=== PATIENT | male | born 1960 | race Caucasian/White ===

== ENCOUNTER 2018-05-29 17:13 | Emergency (ER) | payer SELFPAY ==
[~2018-05-29] VITALS: Ht 188 cm; Wt 73.9 kg
[2018-05-29] MEDS ORDERED: LORAZEPAM INJ 2 MG/ML VIAL ONE ×2 (17:47→19:13)
--- NOTE | 2018-05-29 17:58 | NUR ---
[id number] FRM HOME FOR WITNESSED SEIZURE. L RIB AREA BRUISING NOTED PER REPORT, + ORAL TRAUMA. SOME DRIED BLOOD ON LEFT SIDE OF FACE. PT AOX4, AMB, VSS, RR EVEN AND UNLABORED ON RA. SKIN INTACT. STATES HAVING SOME DIZZINESS ON/OFF FOR WEEKS. READY FOR EVAL.
[2018-05-29] MEDS: IV NS 0.9% 1,000 ML BAG IV ONE (18:01)
[2018-05-29] MEDS: LORAZEPAM INJ 2 MG/ML VIAL IV ONE ×2 (18:01→19:20)
[2018-05-29 18:07] LABS: BASOPHILS # (AUTO) 0.1 /CMM (0.0-0.2); BASOPHILS % (AUTO) 2.4 % (0.0-2.0); EOSINOPHILS % (AUTO) 3.4 % (0.0-6.0); HEMATOCRIT 35 % (39-51); HEMOGLOBIN 11.9 g/dL (13.5-17.5); LYMPHOCYTES # (AUTO) 0.9 /CMM (0.8-4.8); LYMPHOCYTES % (AUTO) 24.4 % (20.0-44.0); MEAN CORPUSCULAR HGB CONC 35 g/dl (31.0-36.0); MEAN CORPUSCULAR VOLUME 108 fL (80-96); MONOCYTES # (AUTO) 0.6 /CMM (0.1-1.30); NEUTROPHILS % (AUTO) 54.8 % (43.0-81.0); PLATELET COUNT (AUTO) 93 /CMM (150-450); RED BLOOD CELL COUNT(AUTO) 3.19 MIL/uL (4.5-6.0); WHITE BLOOD COUNT (AUTO) 3.7 K/uL (4.3-11.0)
[2018-05-29 18:31] LABS: ALBUMIN 3.7 g/dL (3.4-5.0); BILIRUBIN,DIRECT 0.5 mg/dL (0.0-0.2); BILIRUBIN,TOTAL 1.3 mg/dL (0.2-1.0); CALCIUM, SERUM 9.3 mg/dL (8.5-10.1); CREATININE 0.9 mg/dL (0.6-1.3); POTASSIUM 3.1 mmol/L (3.5-5.1); TOTAL PROTEIN, SERUM 6.9 g/dL (6.4-8.2)
[2018-05-29 18:40] LABS: EOSINOPHILS % (MANUAL) 4 % (0-4); LYMPHOCYTES % (MANUAL) 31 % (16-48); MONOCYTES % (MANUAL) 14 % (0-11.0); NEUTROPHILS % (MANUAL) 51 (42-76)
[2018-05-29] MEDS ORDERED: POTASSIUM CHLORIDE 20 MEQ TAB.PRT.SR PO ONE (19:12)
[2018-05-29] MEDS: POTASSIUM CHLORIDE 20 MEQ TAB.PRT.SR PO ONE (19:20)
--- NOTE | 2018-05-29 19:46 | NUR ---
Patient is resting comfortably in bed with eyes closed. Easily aroused. VSS
--- NOTE | 2018-05-29 20:20 | NUR ---
IV removed. Catheter intact and site benign. Pressure and 4x4 applied to site. No bleeding noted. Patient discharged to home in stable condition. Written and verbal after care instructions given. Patient verbalizes understanding of instruction. PROVIDED TAXI VOUCHER TO MANAGER SERVICE DESK
[2018-05-29 20:25] VITALS: BP 135/82
== END 2018-05-29 20:10 | disposition home or self-care (01) ==
LOC: ER 17:19
DX: F10.239 Alcohol dependence with withdrawal, unspecified (principal); R56.9 Unspecified convulsions; I11.9 Hypertensive heart disease without heart failure; Y90.0 Blood alcohol level of less than 20 mg/100 ml
CPT/HCPCS: 36415; 80048; 80076; 80307; 82962; 85025; 85730; 96374; 96376; 99283; A4606; J2060 ×2; J7030; G0480

== ENCOUNTER 2018-12-27 22:07 | Emergency (ER) | payer SELFPAY ==
[~2018-12-27] VITALS: Ht 188 cm; Wt 81.6 kg
--- NOTE | 2018-12-27 22:10 | NUR ---
TO BED 2 BIB EMS FROM [facility] ([facility]) C/ WITNESSED SEIZURE. RECEIVED PT AAOX4 NO ACUTE DISTRESS NOTED, RESP EVEN AND UNLABORED. PUPILS PERRLA, PT ABLE TO MOVE ALL EXTREMITIES WELL WITH BILATERAL EQUAL MEDICAL REVIEW COORDINATOR. NO OBVIOUS HEAD TRAUMA NOTED, NO URINARY OR BOWEL INCONTINENCE NOTED. PLACE PT ON CARDIAC MONITORING, CONTINUOS POX. PENDING ER MD MALAVE.
[2018-12-27] MEDS ORDERED: LORAZEPAM INJ 2 MG/ML VIAL ONE (23:00)
[2018-12-27 23:28] LABS: BASOPHILS % (AUTO) 1.3 % (0.0-2.0); EOSINOPHILS % (AUTO) 1.2 % (0.0-6.0); HEMATOCRIT 33 % (39-51); HEMOGLOBIN 11.7 g/dL (13.5-17.5); LYMPHOCYTES # (AUTO) 0.6 /CMM (0.8-4.8); LYMPHOCYTES % (AUTO) 16.8 % (20.0-44.0); MEAN CORPUSCULAR HGB CONC 35 g/dl (31.0-36.0); MEAN CORPUSCULAR VOLUME 110 fL (80-96); MONOCYTES # (AUTO) 0.7 /CMM (0.1-1.30); MONOCYTES % (AUTO) 18.3 % (2.0-12.0); NEUTROPHILS # (AUTO) 2.4 /CMM (1.8-8.9); NEUTROPHILS % (AUTO) 62.4 % (43.0-81.0); PLATELET COUNT (AUTO) 175 /CMM (150-450); RED BLOOD CELL COUNT(AUTO) 3.02 MIL/uL (4.5-6.0); WHITE BLOOD COUNT (AUTO) 3.8 K/uL (4.3-11.0)
[2018-12-27] MEDS ORDERED: IV NS 0.9% 500 ML BAG IV ONE (23:30)
[2018-12-27] MEDS ORDERED: LORAZEPAM INJ 2 MG/ML VIAL IVP ONE (23:30)
[2018-12-27 23:31] LABS: CALCIUM, SERUM 9.8 mg/dL (8.5-10.1); POTASSIUM 3.4 mmol/L (3.5-5.1)
[2018-12-27 23:44] LABS: B-TYPE NATRIURETIC PEPTIDE 426 PG/ML (0-125)
[2018-12-27 23:56] LABS: LYMPHOCYTES % (MANUAL) 18 % (16-48); MONOCYTES % (MANUAL) 11 % (0-11.0); NEUTROPHILS % (MANUAL) 69 (42-76); REACTIVE LYMPHOCYTES 2 % (0-0)
[2018-12-27] MEDS ORDERED: CARVEDILOL 6.25 MG TABLET ONE (23:59)
[2018-12-28] MEDS ORDERED: CARVEDILOL 6.25 MG TABLET PO ONE
--- NOTE | 2018-12-28 01:05 | NUR ---
PT ASLEEP, NO ACUTE DISTRESS NOTED, RESP EVEN AND UNLABORED. CALL LIGHT WITHIN REACH. WILL CONTINUE TO MONITOR PT.
--- NOTE | 2018-12-28 01:29 | NUR ---
ER MD AT BEDSIDE TALKING TO PT REGARDING LAB, CT AND DISCHARGE BACK TO [facility] ([facility]).
--- NOTE | 2018-12-28 02:03 | NUR ---
SPOKE TO RENZO FROM [facility] REGARDING PT DISCHARGE, STATES WILL SEND SOMEONE TO PICK HIM UP. ETA 45MIN.
--- NOTE | 2018-12-28 03:06 | NUR ---
IV removed. Catheter intact and site benign. Pressure and 4x4 applied to site. No bleeding noted. Patient discharged to home in stable condition. Written and verbal after care instructions given. Patient verbalizes understanding of instruction. ambulatory with a steady gait noted. pt aaox4 no acute distress noted, resp even and unlabored. pt at bedside to take pt home. [facility] staff at bedside to take pt home.
[2018-12-28 03:07] VITALS: BP 121/74
== END 2018-12-28 03:07 | disposition home or self-care (01) ==
LOC: ER 22:07
DX: R56.9 Unspecified convulsions (principal); F10.20 Alcohol dependence, uncomplicated; I10 Essential (primary) hypertension; R00.0 Tachycardia, unspecified; Y90.9 Presence of alcohol in blood, level not specified
CPT/HCPCS: 36415; 70450; 71045; 80048; 83880; 84484; 85025; 93005; 96374; 99284; J2060; J7040